=== PATIENT | male | born 2005 | race Caucasian/White ===

== ENCOUNTER 2024-01-05 13:11 | Emergency (ER) | payer MEDICAID, SELFPAY ==
[2024-01-05 13:19] VITALS: BP 130/72; PULSE 100; RESP 16; TEMP 36.8; O2SAT 98
--- NOTE | 2024-01-05 14:03 | CTR_ITS ---
PROCEDURE INFORMATION: Exam: CT Maxillofacial Without Contrast Exam date and time: 01/05/2024 3:14 PM Age: 18 years old Clinical indication: Injury or trauma; Other: Head between cattle trailer and chute; Blunt trauma (contusions or hematomas); Nose and ocular (eye or eyeball); Bilateral TECHNIQUE: Imaging protocol: Computed tomography of the face without contrast. Sagittal and coronal reformatted images were created and reviewed. Radiation optimization: All CT scans at this facility use at least one of these dose optimization techniques: automated exposure control; mA and/or kV adjustment per patient size (includes targeted exams where dose is matched to clinical indication); or iterative reconstruction. COMPARISON: CT head wo con* [id number] 01/05/2024 3:14 PM RADIATION DOSE METRICS: Total DLP (mGy-cm): 1763.9 FINDINGS: Paranasal sinuses: Small mucous retention cysts in the right and left maxillary sinuses. Other paranasal sinuses are clear. Orbital cavities: Globes and lenses, extraocular muscles, and optic nerves are intact bilaterally. No acute intraorbital abnormality. Mastoid air cells: Visualized mastoid air cells are clear. Nasal cavity: Mild right nasal septal deviation. Kenisha bullosa of the right and left middle turbinates. Bones: Right and left temporomandibular joints are intact. Right and left pterygoid plates are intact. No acute fracture. Soft tissues: No soft tissue swelling. No radiopaque foreign body. CT/CT facial bones wo con* [id number] IMPRESSION: 1. No acute fracture of the facial bones. 2. Incidental/nonacute findings are listed in the report.
--- NOTE | 2024-01-05 14:03 | CTR_ITS ---
PROCEDURE INFORMATION: Exam: CT Head Without Contrast Exam date and time: 01/05/2024 3:14 PM Age: 18 years old Clinical indication: Injury or trauma; Other: Head between cattle trailer and chute; Blunt trauma (contusions or hematomas); Consciousness not specified; Additional info: Trauma, bony windows TECHNIQUE: Imaging protocol: Computed tomography of the head without contrast. Sagittal and coronal reformatted images were created and reviewed. Radiation optimization: All CT scans at this facility use at least one of these dose optimization techniques: automated exposure control; mA and/or kV adjustment per patient size (includes targeted exams where dose is matched to clinical indication); or iterative reconstruction. COMPARISON: No relevant prior studies available. RADIATION DOSE METRICS: Total DLP (mGy-cm): 1763.9 FINDINGS: Brain: No acute intracranial hemorrhage. No acute infarct. No intra-axial or extra-axial masses. López-white matter differentiation is preserved. No cerebral edema. No extra-axial fluid collections. No midline shift. No evidence for Chiari 1 malformation. Cerebral ventricles: No hydrocephalus. Paranasal sinuses: Visualized paranasal sinuses are clear. Mastoid air cells: Visualized mastoid air cells are clear. Orbital cavities: No acute abnormality in the visualized orbits. Nasal cavity: Kenisha bullosa of the right and left middle turbinates. Bones: Unremarkable. No acute fracture. Soft tissues: No acute abnormality of the extracranial soft tissues. CT/CT head wo con* [id number] IMPRESSION: 1. No acute abnormality of the brain. 2. Incidental/nonacute findings are listed in the report.
--- NOTE | 2024-01-05 14:04 | W.ED.HEATRA ---
HPI - Head Injury General: Chief complaint: Trauma Stated complaint: skull crushed between trailer and cattle chute Time Seen by Provider: 01/05/24 13:46 Source: patient and family Mode of arrival: ambulatory Limitations: no limitations History of Present Illness: Patient is a 18-year-old male who presents to ED today along with family for evaluation of a head and face injury that he sustained on Friday/2 days ago after his head accidentally got caught between a metal shoot and cattle trailer. He states he was only pinned for approximately 2 to 3 seconds. States he has had pain since. Pain seems to be worse with palpation as well as talking and eating. He is not having any difficulty swallowing or breathing. He has not noticed any external signs of trauma such as swelling/ hematomas. MD Complaint: head injury Onset (ago): day(s) Place: home Loss of Consciousness: no Location of injury: temporal and face Severity: moderate Radiation: none Other Injuries: none Associated symptoms: Reports no associated symptoms; Deny confusion, nausea, neck pain or vomiting Related Data Home Medications Medication Instructions Recorded Confirmed acetaminophen 500 mg capsule 500 mg PO PRN PRN Pain 01/05/24 01/05/24 Allergies Allergy/AdvReac Type Severity Reaction Status Date / Time No Known Allergies Allergy Verified 01/05/24 13:28 Review of Systems Const: Denies: fever(s) Eyes: Denies: change in vision, blurry vision, photophobia, floaters or seeing flashes ENMT: Denies: throat pain, odynophagia, dental pain, ear discharge, nasal discharge or nasal congestion GI: Denies: nausea or vomiting Musc: Denies: neck pain Neuro: Reports: headache(s); Denies: numbness in extremities, weakness in extremities, sensory changes, dizziness, confusion, behavioral changes, Slurred speech present or difficulty communicating thoughts Physical Exam Const: COMMON NORMALS: no acute distress, average body habitus, patient oriented x3, no limitations, healthy appearing, alert and well nourished GENERAL APPEARANCE: cooperative ORIENTATION/CONSCIOUSNESS: Yes awake, Yes oriented to person, Yes oriented to place and Yes oriented to time HENMT: COMMON NORMALS: normocephalic, atraumatic, EAC's normal and TM's normal bilaterally HEAD & SCALP: normal to inspection, normocephalic, atraumatic and other (TTP bilateral temporal regions; no external signs of trauma); no Barnhart's sign, no contusion, no hematoma, no palpable skull fracture and no raccoon eyes FACE & SINUS: sinuses nontender and other (TTP around R TMJ; he is able to move jaw from side to side) EXTERNAL AUDITORY CANAL: EAC's normal TYMPANIC MEMBRANE: TM's normal bilaterally MOUTH: Normal oral and palatal mucosa present Eye: COMMON NORMALS: Equal, round and reactive pupils present and EOMs intact bilaterally GENERAL EYE: appearance normal, both eyes and all related structures and normal light reflex PUPIL: Yes Equal, round and reactive pupils present DIRECT OPHTHALMOSCOPY: Yes normal light reflex Neck/C-Spine: COMMON NORMALS: full ROM GENERAL: Yes normal visual inspection CERVICAL SPINE: No pain with cervical ROM Neuro: TAURUS COMA SCALE: document GCS findings Taurus coma scale eye opening: Spontaneous Taurus coma scale verbal response: Orientated Taurus coma scale motor response: Obey commands [place] coma scale total score: 15 COMMON NORMALS: patient oriented x3, CN's II-XII intact bilaterally, moves all extremities, no focal motor deficits and no sensory deficits noted SENSORIUM/ORIENTATION: Yes alert, Yes oriented to person, Yes oriented to place and Yes oriented to time Course Vital Signs: Vital signs: Vital Signs Temperature 98.3 F 01/05/24 13:19 Pulse Rate 99 01/05/24 14:25 Respiratory Rate 18 01/05/24 14:25 Blood Pressure 128/76 01/05/24 14:25 Pulse Oximetry 100 01/05/24 14:25 Oxygen Delivery Me thod Room Air 01/05/24 14:25 MDM - Head Injury Medcial Decision Making CT imaging unremarkable. Follow up with PCP in 1-2 weeks if symptoms do not begin to improve with conservative therapies. Differential Diagnosis Likely concussion without loss of consciousness, epidural hematoma, closed head injury, subarachnoid hematoma, postconcussion syndrome and subdural hematoma; Unlikely concussion with loss of consciousness Medical Records I reviewed the patient's medical records. Lab Data Radiology Impressions Face CT 01/05/24 14:03 IMPRESSION: 1. No acute fracture of the facial bones. 2. Incidental/nonacute findings are listed in the report. Head CT 01/05/24 14:03 IMPRESSION: 1. No acute abnormality of the brain. 2. Incidental/nonacute findings are listed in the report. All radiology interpretation(s) finalized by discharge Discharge Plan Discharge Patient Disposition: Home Clinical Impression: Minor closed head injury Contusion of face Qualifiers: Encounter type: initial encounter Qualified Code(s): S00.83XA - Contusion of other part of head, initial encounter Condition: Stable Prescriptions: No Action acetaminophen [Tylenol Extra Strength] 500 mg Capsule 500 mg PO PRN PRN (Reason: Pain) Discharge Orders: Discharge ED (Routine); Ordered 01/05/24 Ordered By: Zoe Cobos Activity Restrictions/Additional Instructions: As we discussed, you may use Tylenol and/or Ibuprofen as needed for discomfort. He can take up to 1000 mg of Tylenol every 4-6 hours and 800 mg of Ibuprofen every 6-8 hours. Continue with ice and heat. Please follow-up with his primary care provider in 1 to 2 weeks if symptoms do not seem to be improving. Coding Level of Care Code ED [employer] Operator for Arsen [facility]
[2024-01-05 14:25] VITALS: BP 128/76; PULSE 99; RESP 18; O2SAT 100
[2024-01-05 16:02] VITALS: BP 124/78; PULSE 97; O2SAT 99
== END 2024-01-05 16:03 | disposition home or self-care (01) ==
PROVIDERS: Emergency Provider Physician Assistant
DX: S00.83XA Contusion of other part of head, initial encounter (principal); W23.0XXA Caught, crushed, jammed, or pinched between moving objects, initial encounter
CPT/HCPCS: 70450; 70486; 99284